=== PATIENT | female | born 1940 | race African-American/Black ===

== ENCOUNTER 2018-04-21 08:59 | Inpatient (IN) | payer OTHER ==
[2018-04-08 12:51] VITALS: BMI 23.5
[~2018-04-21 08:59] MED LIST: CEFAZOLIN 1 GM/D5W 1 GM/50 ML BAG IVPB ONE; VANCOMYCIN 1,000 MG in DEXTROSE 5%-WATER - 250 ML IVPB ONE
[2018-04-21] MEDS ORDERED: BUPIVACAINE LIPOSOME/PF (EXPAREL) 266 MG/20 ML VIAL ONE (13:29)
[2018-04-21] MEDS ORDERED: MIDAZOLAM HCL 2 MG/2 ML SINGLE DOSE VIAL ONE ×3 (13:29→17:03)
[2018-04-21] MEDS ORDERED: ONDANSETRON 4 MG/2 ML VIAL IVPUSH PRN ×2 (13:50→17:28)
[2018-04-21] MEDS ORDERED: oxyCODONE HCL 5 MG TABLET PO PRN ×3 (13:51→14:04)
[2018-04-21] MEDS ORDERED: LACTATED RINGERS SOLUTION 1,000 ML IV SCH ×2 (14:00→17:30)
[2018-04-21] MEDS ORDERED: PROPOFOL 20 ML ONE ×2 (14:18)
[2018-04-21] MEDS ORDERED: SUCCINYLCHOLINE CHLORIDE 200 MG/10 ML VIAL ONE (14:18)
[2018-04-21] MEDS ORDERED: DEXAMETHASONE SOD PHOSPHATE 4 MG/1 ML VIAL ONE (14:30)
[2018-04-21] MEDS ORDERED: ONDANSETRON 4 MG/2 ML VIAL ONE (14:30)
[2018-04-21] MEDS ORDERED: TRANEXAMIC ACID 1000 MG/10 ML VIAL ONE (14:30)
[2018-04-21] MEDS ORDERED: ceFAZolin SODIUM 1 GM VIAL ONE (14:30)
[2018-04-21] MEDS ORDERED: BENZOIN/ALOE VERA/STORAX/TOLU 58 ML BOTTLE ONE (17:04)
--- NOTE | 2018-04-21 17:25 | OP ---
Operative Note - Note: Operative Date: 04/21/18 Pre-Operative Diagnosis: Right knee osteoarthritis, degenerative joint disease Operation: Right total knee replacement, excision of synovial tumor Findings: as dictated Implants: as dictated Post-Operative Diagnosis: Same as Pre-op Surgeon: Renny Fox Paraeducator: Javed Jay Anesthesiologist/LADIES' HAT TRIMMER: Zak Villalta Anesthesia: Spinal, Local (Blocks: Saphenous, selective tibial) Specimens Removed: bone cuts, synovial tumor Estimated Blood Loss (mls): 75 (ml) Drains & Tubes with Location: Intra-articular hemovac. Tourniquet: 119min at 350mmHg Fluid Volume Replaced (mls): 1,300 (LR) Operative Report Dictated: Yes
[2018-04-21] MEDS ORDERED: MAG HYDROX/AL HYDROX/SIMETH 30 ML UNIT-DOSE CUP PO PRN (17:28)
[2018-04-21] MEDS ORDERED: MAGNESIUM HYDROX 2400MG/30ML ORAL SUSPENSION 30 ML CUP PO PRN (17:28)
[2018-04-21] MEDS ORDERED: ALBUTEROL SO4 8 GM HFA INHALER IH PRN (17:36)
[2018-04-21] MEDS ORDERED: PATIENT'S OWN MEDICATION (NON-FORMULARY) (Cetirizine Hcl 10 MG) PO PRN (17:36)
[2018-04-21] MEDS ORDERED: PATIENT'S OWN MEDICATION (NON-FORMULARY) (Esomeprazole Magnesium [Nexium 24hr] 40 MG) PO PRN (17:36)
[2018-04-21] MEDS ORDERED: LORATADINE 10 MG TABLET PO PRN (17:56)
[2018-04-21] MEDS ORDERED: ACETAMINOPHEN 325 MG TABLET (FP) ONE (18:04)
[2018-04-21] MEDS: ACETAMINOPHEN 325 MG TABLET (FP) PO SCH ×2 (18:21→18:30)
[2018-04-21] MEDS: oxyCODONE HCL 5 MG TABLET PO PRN (19:38)
[2018-04-21] MEDS: SENNOSIDES/DOCUSATE COMBO (SENNA PLUS) TABLET (UD) PO SCH (21:08)
[2018-04-21] MEDS: ASPIRIN COATED 81 MG TABLET.EC PO SCH (21:08)
[2018-04-21] MEDS: GABAPENTIN 300 MG CAPSULE (FP) PO SCH (21:08)
[2018-04-21] MEDS ORDERED: PATIENT'S OWN MEDICATION (NON-FORMULARY) (Lubiprostone [Amitiza] 24 MCG) PO SCH (22:00)
[2018-04-21] MEDS ORDERED: SENNOSIDES/DOCUSATE COMBO (SENNA PLUS) TABLET (UD) PO SCH (22:00)
[2018-04-21] MEDS: HYDROmorphone HCL 2 MG TABLET PO SCH (22:08)
[2018-04-21] MEDS: HYDROmorphone HCL CARPU-JECT 2 MG/1 ML DISP.SYRIN IVPB PRN (22:54)
[2018-04-21] MEDS: BUDESONIDE/FORMETEROL FUMARATE 80/4.5 mcg INHALER IH SCH (22:55)
[2018-04-21] MEDS: CEFAZOLIN 1 GM/D5W 1 GM/50 ML BAG IVPB SCH (22:55)
--- NOTE | 2018-04-21 23:09 | CONSULT ---
Consult Consult Specialty:: Hospital Medicine Referred by:: Dr. Fox Reason for Consultation:: Medical Management - History of Present Illness Chief Complaint: Right Knee Pain History of Present Illness: This is a 77 y/o woman with a past medical history of HTN, Asthma, COPD, Right Breast Ca (s/p Lumpectomy, RT 2012), CKD Stage 3, Anemia, DVT/PE, OA, DJD, Chronic Back Pain, GERD. Who had elective Right Total Knee Replacement, Excision of Synovial Tumor secondary to severe pain and difficulty ambulating. POD #0. Patient is AAOx3, reports having right knee pain, PS 6/10. Patient reports having numbness and tingling to her right foot. Patient reports tolerating PO fluids, voiding in bed medrano, no flatulence. Patient denies fever, chills, cough, SOB, dizziness, SANDS, CP, palpitations, AP, N/V,D. - History Source History Provided By: Patient Limitations to Obtaining History: No Limitations - Past Medical History Cardio/Vascular: Yes: CAD, Deep Vein Thrombosis, HTN, SC, Pulmonary Hypertension Pulmonary: Yes: Asthma, COPD, Pulmonary Embolus Gastrointestinal: Yes: GERD Renal/: Yes: Renal Failure Heme/Onc: Yes: Anemia, Cancer ([place]), Current Chemotherapy Psych: Yes: Anxiety, Depression Musculoskeletal: Yes: Chronic low back pain, Osteoarthritis - Past Surgical History Past Surgical History: Yes: Colonoscopy Additional Surgical History: Lumpectomy - Alcohol/Substance Use Hx Alcohol Use: No - Smoking History Smoking history: Never smoked Have you smoked in the past 12 months: No Home Medications - Allergies Allergies/Adverse Reactions: Allergies Allergy/AdvReac Type Severity Reaction Status Date / Time chocolate flavor Allergy Severe SNEEZING Verified 04/08/18 12:36 Penicillins Allergy Severe Rash Verified 04/08/18 12:36 shellfish derived Allergy Severe Swelling Verified 04/08/18 12:36 - Home Medications Home Medications: Ambulatory Orders Albuterol Sulfate Inhaler - [Ventolin Hfa Inhaler -] 1 - 2 inh PO Q4H PRN Esomeprazole Magnesium [Nexium 24Hr] 40 mg PO PRN PRN 01/25/18 Fluticasone/Salmeterol [Advair 250-50 Diskus] 1 each IH BID 01/25/18 Hydrocodone/Ibuprofen [Hydrocodone-Ibuprofen 5-200 mg] 1 tab PO PRN PRN Losartan/Hydrochlorothiazide [Losartan-Hctz 100-25 mg Tab] 1 tab PO DAILY Cetirizine HCl [Zyrtec -] 10 mg PO DAILY PRN 04/21/18 Ergocalciferol (Vitamin D2) [Vitamin D2] 50,000 unit PO WEEKLY 04/21/18 Lubiprostone [Amitiza] 24 mcg PO BID 04/21/18 Mirabegron [Myrbetriq] 50 mg PO DAILY 04/21/18 Family Disease History - Family Disease History Family Disease History: Heart Disease: Mother (CHF), CA: Mother, Sister (Breast , Ovarian) Review of Systems - Review of Systems Constitutional: reports: No Symptoms Eyes: reports: No Symptoms HENT: reports: No Symptoms Neck: reports: No Symptoms Cardiovascular: reports: No Symptoms Respiratory: reports: No Symptoms Gastrointestinal: reports: No Symptoms Genitourinary: reports: No Symptoms Breasts: reports: No Symptoms Reported Musculoskeletal: reports: Decreased ROM, Extremity Pain, Joint Pain, Joint Swelling Integumentary: reports: No Symptoms Neurological: reports: Numbness, Parasthesia Endocrine: reports: No Symptoms Hematology/Lymphatic: reports: No Symptoms Psychiatric: reports: No Symptoms Pain Intensity: 6 Physical Exam Vital Signs: Vital Signs Temperature 98.1 F 04/21/18 17:33 Pulse Rate 74 04/21/18 18:24 Respiratory Rate 18 04/21/18 18:24 Blood Pressure 140/64 04/21/18 18:24 O2 Sat by Pulse Oximetry (%) 100 04/21/18 18:22 Constitutional: Yes: Well Nourished, Anxious, Mild Distress Eyes: Yes: WNL, Conjunctiva Clear, EOM Intact, PERRL HENT: Yes: WNL, Atraumatic, Normocephalic Neck: Yes: WNL, Supple, Trachea Midline Cardiovascular: Yes: WNL, Regular Rate and Rhythm, S1, S2 Respiratory: Yes: WNL, Regular, CTA Bilaterally Gastrointestinal: Yes: Soft, Hypoactive Bowel Sounds ...Rectal Exam: Yes: Deferred Renal/: Yes: WNL Breast(s): Yes: WNL Musculoskeletal: Yes: Joint Swelling, Other ( right thigh/knee bandage- c/d/i, hemovac, icepack noted with SCDs, TN to palpation, LROM.) Edema: No Peripheral Pulses WNL: Yes Neurological: Yes: Cran Nerves II-XII Intact, Numbness, Paresthesia ...Motor Strength: LUE (5/5), LLE (5/5), RUE (5/5), RLE (3/5) Psychiatric: Yes: WNL, Alert, Oriented Problem List - Problems (1) Status post total right knee replacement Code(s): Z96.651 - PRESENCE OF RIGHT ARTIFICIAL KNEE JOINT (2) Anemia Code(s): D64.9 - ANEMIA, UNSPECIFIED (3) CKD (chronic kidney disease) stage 3, GFR 30-59 ml/min Code(s): N18.3 - CHRONIC KIDNEY DISEASE, STAGE 3 (MODERATE) (4) HTN (hypertension) Code(s): I10 - ESSENTIAL (PRIMARY) HYPERTENSION (5) COPD (chronic obstructive pulmonary disease) Code(s): J44.9 - CHRONIC OBSTRUCTIVE PULMONARY DISEASE, UNSPECIFIED (6) Asthma Code(s): J45.909 - UNSPECIFIED ASTHMA, UNCOMPLICATED (7) Depression Code(s): F32.9 - MAJOR DEPRESSIVE DISORDER, SINGLE EPISODE, UNSPECIFIED (8) Breast cancer, right Code(s): C50.911 - MALIGNANT NEOPLASM OF UNSP SITE OF RIGHT FEMALE BREAST (9) DJD (degenerative joint disease), cervical Code(s): M47.812 - SPONDYLOSIS W/O MYELOPATHY OR RADICULOPATHY, CERVICAL REGION (10) Osteoarthritis Code(s): M19.90 - UNSPECIFIED OSTEOARTHRITIS, UNSPECIFIED SITE (11) Back pain Code(s): M54.9 - DORSALGIA, UNSPECIFIED Assessment/Plan This is a 77 y/o woman with a PMHx of: HTN, R- Breast Ca s/p Lumpectomy, RT ( 2012), Asthma, COPD, CKD Stage 3, OA, DJD. s/p Right Total Knee Replacement, Excision of Synovial Tumor. POD #0 Plan: Continue current ortho regimen PT Incentive Spirometry Continue home meds Monitor CBC, BMP Continue AC, per Ortho Visit type - Emergency Visit Emergency Visit: No - New Patient This patient is new to me today: Yes Date on this admission: 04/21/18 - Critical Care Critical Care patient: No
[2018-04-22] MEDS: ACETAMINOPHEN 325 MG TABLET (FP) PO SCH ×5 (01:44→20:13)
[2018-04-22] MEDS: oxyCODONE HCL 5 MG TABLET PO PRN ×2 (01:45→18:24)
[2018-04-22] MEDS: HYDROmorphone HCL CARPU-JECT 2 MG/1 ML DISP.SYRIN IVPB PRN (05:33)
[2018-04-22] MEDS: CEFAZOLIN 1 GM/D5W 1 GM/50 ML BAG IVPB SCH (06:07)
--- NOTE | 2018-04-22 06:32 | OP ---
DATE OF OPERATION: 04/21/2018 SURGEON: Renny Fox M.D. TECHNICIAN AUTOMATIC: Shawn Kennedy. PREOPERATIVE DIAGNOSIS: Tricompartment osteoarthritis, right knee. POSTOPERATIVE DIAGNOSIS: 1. Tricompartment osteoarthritis, right knee. 2. 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 OPERATION PERFORMED: 1. Right posterior stabilized total knee arthroplasty (Laurier Triathlon cemented implant). 2. Wide resection of hemangioma. ANESTHESIA: Conscious sedation with spinal anesthesia and peripheral block. ANTIBIOTICS GIVEN: 2 g Kefzol. TOURNIQUET: Applied. TOURNIQUET TIME: Approximately 90 minutes. DESCRIPTION OF PROCEDURE: Patient was correctly identified, brought in operating room. Right lower extremity was prepped, pre-draped in the routine manner with Betadine scrub solution, wiped with alcohol, DuraPrep applied. Midline incision is utilized. We were indicating a subvastus approach here, but the vasculature at the corner of the vastus medialis was readily seen, and I elected to hold off on this, as this is directly in the path of the subvastus incision approach and instead opted for a standard approach. The quadriceps tendon was split longitudinally, and the medial parapatellar margin with the cuff of about a centimeter down to the medial aspect of the tibia. The knee was flexed which enabled easy access to the knee, which revealed a deficient femoral condyle on the lateral side, and severe tricompartment osteoarthritis with tram tracks noted in the femoral condyles and tibial plateaus. To start, the entire hemangioma was resected. Wide resection was performed and sent to the lab for appropriate histopathology. The operation commenced to the knee replacement. The patella was capsized laterally. Free handedly the patella was cut from patella ligament and quadriceps tendon. Once this had been performed, the Rashmi was placed behind the tibia, leaving the tibia forward levering on the intracondylar notch, giving easy access to the proximal tibia. The appropriate jig system which was an extramedullary jig system applied, and the appropriate amount of bone taken off to receive a size 6 universal base plate (Charo). Once the appropriate jig system placed on the tibia, it was adequate enough to receive the appropriate trial components for a size 6. The patella was then dealt with by patella resection from filling the quadriceps tendon and utilized an appropriate 27-mm patellar button. The [facility] through the actual jig. The femur was then attended to. This ultimately measured size 6, and the appropriate jig system applied, this was cut to 3 degrees of external rotation, 4-1/2 degrees of valgus, and the jigs were aligned on the basis of the proximal tibial cut because of the markedly deficient femoral condyle. The bone bed was dealt with with the routine cuts and the very sclerotic bone was dealt with with multiple small drill holes into the bone for cementation purposes. Once all jig cuts had been made, extension gaps were measured at 9 mm and were even. The limb aligned was perfect in the coronal as well as sagittal plane. Cementing was then commenced. All 3 components cemented at once, and extraneous cement removed prior to the cement had cured, and debridement of the soft tissues performed appropriately. The wounds were thoroughly lavaged. The tracking of the patella was normal with a trial size 9 and the stability in the coronal sagittal plane were well maintained accordingly. The knee alignment in the coronal sagittal plane was well maintained. Range of movement was 0 to 120 degrees, ligaments within the coronal and sagittal plane were normal, both at 90 degrees and the flexion-extension was stable both in the coronal and sagittal plane. The foot alignment in the axial rotational plane was normal. Once all extraneous cement had been removed, tissues were thoroughly lavaged, closure was as follows. Fascia and quadriceps tendon 1 Vicryl interrupted sutures, subcutaneous 1 and 2-0 Vicryl, skin 3-0 Monocryl with Steri-Strips. Drainage 1/8 inch Hemovac x1. Overall comment: Difficult knee replacement because of deficient femoral condyle and resection of the tumor. We await histopathology confirmation. My clinical sense is, this is a synovial hemangioma. Patient to be nursed on the floor. MD MICH Cadena/[id number] MTDGodwin
--- NOTE | 2018-04-22 08:08 | PN ---
Progress Note (short form) - Note Progress Note: POD #1 Alert. Sitting in chair at bedside. C/o incisional pain. Adequate pain control with medications ordered. Denies n/v/f/c, CP, palpitations or SOB. Last Vital Signs Temp Pulse Resp BP Pulse Ox 97.6 F 63 18 110/71 98 12//18 09:43 12//18 09:43 04/22/18 09:43 04/22/18 09:43 04/22/18 09:43 CBC, BMP 04/22/ 07:29 04/22/18 07:29 Gen: nad LE: RLE dressing c/d/i. hemovac 120 mL. calf soft/supple/nt bilat. leg in extension. Problem List - Problems (1) Right knee DJD Assessment/Plan: POD #1 s/p Right TKR -Pain control. -DVT PPx: -Chemical: ASA 81 mg po BID x 6 weeks -Mechanical: CHEY's, SCD's -Incentive Spirometry. -PT/OT/Rehab, OOB. -WBAT RLE -Will dc drain AM -f/u am labs. -Care per medical hospitalist team. -Discharge planning: f/u [facility] [place] office recreation superintendent for appointment: Code(s): M17.12 - UNILATERAL PRIMARY OSTEOARTHRITIS, RIGHT KNEE
[2018-04-22 08:15] LABS: HEMOGLOBIN 9.5 GM/dl (10.7-15.3); MCH 26.6 pg (25.7-33.7); MCHC 30.6 g/dl (32.0-36.0); MEAN CELL VOLUME 86.9 fl (80-96); MEAN PLT VOLUME 8.8 fl (7.5-11.1); PLATELET COUNT 188 K/MM3 (134-434); RBC 3.56 M/mm3 (3.60-5.2); RDW 13.1 % (11.6-15.6); WHITE BLOOD COUNT 6.8 K/mm3 (4.0-10.8)
[2018-04-22 08:28] LABS: ANION GAP 7 MMOL/L (8-16); BLOOD UREA NITROGEN 12 mg/dl (7-18); CALCIUM 8.8 mg/dl (8.4-10.2); CHLORIDE 100 mmol/L (98-107); CO2 25 mmol/L (22-28); CREATININE 0.8 mg/dl (0.6-1.3); GLUCOSE,RANDOM 125 mg/dl (74-106); POTASSIUM 3.6 mmol/L (3.5-5.1); SODIUM 132 mmol/L (136-145)
--- NOTE | 2018-04-22 08:38 | PN ---
Physical Exam: SUBJECTIVE: Patient seen and examined at bedside. Back from physical therapy. Pain was an issue overnight and patient received IV dilaudid. Subsequent concern for oversedation. This morning patient is awake, alert, conversational. No signs of oversedation. OBJECTIVE: Vital Signs Period Temp Pulse Resp BP Sys/Spangler Pulse Ox Last 24 Hr 97.7 F-98.9 F 61-76 18-19 117-169/56-82 95-100 GENERAL: The patient is awake, alert, and fully oriented, in no acute distress. LUNGS: Breath sounds equal, clear to auscultation bilaterally, no wheezes, no crackles, no accessory muscle use. HEART: Regular rate and rhythm, S1, S2 . ABDOMEN: Soft, nontender, nondistended EXTREMITIES: RIGHT LOWER: Surgical wrap c/d/i; SCDs, TEDs, ice pack; +flexion/ extension toes NEUROLOGICAL: Cranial nerves II through XII grossly intact. Normal speech, steady gait PSYCH: Normal mood, normal affect. SKIN: Warm, dry, normal turgor, no rashes or lesions noted Active Medications Generic Name Dose Route Start Last Admin Trade Name Freq PRN Reason Stop Dose Admin Acetaminophen 650 mg 04/21/18 14:00 04/22/18 08:24 Tylenol - PO 04/24/18 13:59 650 mg Q6H ARIEL Administration Al Hydroxide/Mg Hydroxide 30 ml 04/21/18 17:28 Mylanta Oral Suspension - PO Q4H PRN DYSPEPSIA Albuterol Sulfate 1 puff 04/21/18 17:36 Ventolin Hfa Inhaler - IH Q4H PRN ASTHMA Aspirin 81 mg 04/21/18 22:00 04/21/18 21:08 Ecotrin - PO 81 mg BID ARIEL Administration Budesonide/Formoterol Fumarate 2 puff 04/21/18 22:00 04/21/18 22:55 Symbicort 80/4.5mcg - IH 2 puff BID ARIEL Administration Ergocalciferol 50,000 unit 04/23/18 10:00 Drisdol - PO Fr@1000 ARIEL Fentanyl 50 mcg 04/21/18 17:55 04/21/18 18:10 Sublimaze Injection - IVPUSH 50 mcg Q5M PRN Administration PAIN-PACU ORDER X 4 DOSES ONLY Gabapentin 300 mg 04/21/18 22:00 04/21/18 21:08 Neurontin - PO 04/24/18 21:59 300 mg BID ARIEL Administration HCTZ/Losartan Potassium 2 tab 04/22/18 10:00 Hyzaar - PO DAILY ARIEL Hydromorphone HCl 2 mg 04/21/18 22:00 04/21/18 22:08 Dilaudid - PO 04/22/18 10:01 2 mg BID ARIEL Administration Hydromorphone HCl 2 mg 04/21/18 22:43 04/22/18 05:33 Dilaudid Injection - IVPB 2 mg Q6H PRN Administration PAIN LEVEL 7 - 10 Lactated Ringer's 1,000 mls @ 125 mls/hr 04/21/18 14:00 04/22/18 07:11 Lactated Ringers Solution IV Not Given ASDIR ARIEL Loratadine 10 mg 04/21/18 17:56 Claritin - PO DAILY PRN ALLERGY Magnesium Hydroxide 30 ml 04/21/18 17:28 Milk Of Magnesia - PO PRN PRN CONSTIPATION Multivitamins/Minerals/Vitamin C 1 tab 04/22/18 10:00 Tab-A-Vit - PO DAILY [facility] Non-Formulary Medication 24 mcg 04/21/18 22:00 Lubiprostone [Amitiza] PO BID [facility] Non-Formulary Medication 50 mg 04/22/18 10:00 Mirabegron [Myrbetriq] PO DAILY [facility] Ondansetron HCl 4 mg 04/21/18 17:28 Zofran Injection IVPUSH Q6H PRN NAUSEA Oxycodone HCl 5 mg 04/21/18 14:04 Roxicodone - PO Q3H PRN PAIN LEVEL 1 - 3 Oxycodone HCl 10 mg 04/21/18 14:05 04/22/18 01:45 Roxicodone - PO 10 mg Q3H PRN Administration PAIN LEVEL 4 - 6 Senna/Docusate Sodium 1 tablet 04/21/18 22:00 04/21/18 21:08 Pericolace - PO 1 tablet BID ARIEL Administration ASSESSMENT/PLAN 77 year-old female with a PMH significant for HTN, CKD, breast cancer s/p right lumpectomy (2012) asthma, bronchiectasis, GERD, depression/anxiety, and right knee OA s/p right TKR and excision of synovial tumor on 04/21/[address] Renny Fox. s/p Right TKR and excision of synovial tumor 04/21/18 --POD #1 --pain was issue overnight and patient became overly sedated following IV dilaudid; d/c'd fentanyl and dilaudid; manage pain with PO meds --perioperative antibiotics complete --Hemovac with 120cc's output --bowel regimen --incentive spirometry --ASA 81mg BID Hypertension --BP stable --continue HCTZ/Losartan CKD --renal function stable Breast cancer s/p right lumpectomy --has been on endocrine therapy x 5 years --stable Asthma Bronchiectasis --continue Symbicort and albuterol inhalers GERD --Mylanta PRN Depression/Anxiety --not on medication FEN Fluids: PO intake adequate Electrolytes: replete as indicated Nutrition: low sodium DVT prophylaxis: ASA, SCDs, TEDs, oob, ambulation Physical therapy Dispo: continues to require inpatient care. Full code. Visit type - Emergency Visit Emergency Visit: Yes ED Registration Date: 04/21/18 Care time: The patient presented to the Emergency Department on the above date and was hospitalized for further evaluation of their emergent condition. - New Patient This patient is new to me today: Yes Date on this admission: 04/22/18 - Critical Care Critical Care patient: No
[2018-04-22] MEDS: SENNOSIDES/DOCUSATE COMBO (SENNA PLUS) TABLET (UD) PO SCH ×2 (09:54→22:07)
[2018-04-22] MEDS: ASPIRIN COATED 81 MG TABLET.EC PO SCH ×2 (09:54→22:07)
[2018-04-22] MEDS: MULTIVITAMINS (DAILY MVI) TABLET (FP) PO SCH (09:54)
[2018-04-22] MEDS: GABAPENTIN 300 MG CAPSULE (FP) PO SCH ×2 (09:55→22:07)
[2018-04-22] MEDS: LOSARTAN 50MG/HCTZ 12.5MG 1 TAB (FP) PO SCH (09:55)
[2018-04-22] MEDS ORDERED: PT OWN MED DRAWER 7, Y5N ONE ×2 (09:57→21:56)
[2018-04-22] MEDS: BUDESONIDE/FORMETEROL FUMARATE 80/4.5 mcg INHALER IH SCH ×2 (09:58→22:07)
[2018-04-22] MEDS ORDERED: PATIENT'S OWN MEDICATION (NON-FORMULARY) (Losartan/Hydrochlorothiazide [Losartan-Hctz 100- PO SCH ×2 (10:00)
[2018-04-22] MEDS ORDERED: PATIENT'S OWN MEDICATION (NON-FORMULARY) (Mirabegron [Myrbetriq] 50 MG) PO SCH (10:00)
[2018-04-22] MEDS ORDERED: PANTOPRAZOLE 40 MG TABLET (FP) PO SCH (10:00)
[2018-04-22] MEDS: HYDROmorphone HCL 2 MG TABLET PO SCH (10:07)
--- NOTE | 2018-04-22 10:52 | PN ---
Progress Note (short form) - Note Progress Note: Anesthesia post op note, POD#1 S/P right knee arthroplasty, under spinal and peripheral nerve blocks. Pat seen and examined. VSS. Started PT. Pain controlled , although c/o nausea after taking pain medication. No apparent anesthesia related complications. Signed off.
[2018-04-23] MEDS: ACETAMINOPHEN 325 MG TABLET (FP) PO SCH ×3 (01:18→14:49)
[2018-04-23] MEDS: oxyCODONE HCL 5 MG TABLET PO PRN ×4 (01:19→14:55)
[2018-04-23 08:28] LABS: HEMATOCRIT 29.8 % (32.4-45.2); HEMOGLOBIN 9.3 GM/dl (10.7-15.3); MCH 27.4 pg (25.7-33.7); MCHC 31.2 g/dl (32.0-36.0); MEAN CELL VOLUME 87.6 fl (80-96); MEAN PLT VOLUME 8.8 fl (7.5-11.1); PLATELET COUNT 178 K/MM3 (134-434); RDW 13.1 % (11.6-15.6); WHITE BLOOD COUNT 6.7 K/mm3 (4.0-10.8)
[2018-04-23] MEDS ORDERED: PT OWN MED DRAWER 7, Y5N ONE ×2 (09:16→14:51)
[2018-04-23] MEDS ORDERED: ERGOCALCIFEROL (VITAMIN D2) 50,000 UNIT CAPSULE (FP) PO SCH (10:00)
[2018-04-23] MEDS: LOSARTAN 50MG/HCTZ 12.5MG 1 TAB (FP) PO SCH (10:32)
[2018-04-23] MEDS: SENNOSIDES/DOCUSATE COMBO (SENNA PLUS) TABLET (UD) PO SCH (10:32)
[2018-04-23] MEDS: ASPIRIN COATED 81 MG TABLET.EC PO SCH (10:32)
[2018-04-23] MEDS: MULTIVITAMINS (DAILY MVI) TABLET (FP) PO SCH (10:32)
[2018-04-23] MEDS: BUDESONIDE/FORMETEROL FUMARATE 80/4.5 mcg INHALER IH SCH (10:32)
[2018-04-23] MEDS: GABAPENTIN 300 MG CAPSULE (FP) PO SCH (10:32)
--- NOTE | 2018-04-23 11:57 | SURG ---
Surgery Welding Inspector Note Welding Inspector: Javed Jay PA-C (Suzy) Date of Service: 04/21/18 Diagnosis: Right knee osteoarthritis, degenerative joint disease Procedure: Right total knee replacement, excision of synovial tumor I was present for the entirety of the operative procedure. For further detail, please refer to operative report. Visit type - Case Type Case Type: Scheduled - Emergency Emergency Visit: No - New patient This patient is new to me today: Yes Date on this admission: 04/23/18 - Critical Care Critical Care patient: No
--- NOTE | 2018-04-23 13:44 | DS ---
Physical Exam: SUBJECTIVE: Patient seen and examined OBJECTIVE: Vital Signs Temperature 98.4 F 04/23/18 09:34 Pulse Rate 97 H 04/23/18 09:34 Respiratory Rate 18 04/23/18 09:34 Blood Pressure 172/48 H 04/23/18 09:34 O2 Sat by Pulse Oximetry (%) 98 04/23/18 09:00 PHYSICAL EXAM GENERAL: The patient is awake, alert, and fully oriented, in no acute distress. HEAD: Normal with no signs of trauma. EYES: PERRL, extraocular movements intact, sclera anicteric, conjunctiva clear. ENT: Ears normal, nares patent, oropharynx clear without exudates, moist mucous membranes. NECK: Trachea midline, full range of motion, supple. LUNGS: breathing comfortably, no accessory muscle use. HEART: Regular rate and rhythm, EXTREMITIES: 2+ pulses, warm, well-perfused, no edema. RLE shows, mild tenderness over knee, no weakness or numbness, incision is clean with no erythema or discharge. Drain in place with serosanguinous drain, removed at bedside. NEUROLOGICAL: Cranial nerves II through XII grossly intact. Normal speech, gait not observed. PSYCH: Normal mood, normal affect. SKIN: Warm, dry, normal turgor, no rashes or lesions noted. LABS CBC,CMP WBC 6.7 K/mm3 (4.0-10.8) 04/23/18 07:11 RBC 3.40 M/mm3 (3.60-5.2) L 04/23/18 07:11 Hgb 9.3 GM/dl (10.7-15.3) L 04/23/18 07:11 Hct 29.8 % (32.4-45.2) L 04/23/18 07:11 MCV 87.6 fl (80-96) 04/23/18 07:11 MCH 27.4 pg (25.7-33.7) 04/23/18 07:11 MCHC 31.2 g/dl (32.0-36.0) L 04/23/18 07:11 RDW 13.1 % (11.6-15.6) 04/23/18 07:11 Plt Count 178 K/MM3 (134-434) 04/23/18 07:11 MPV 8.8 fl (7.5-11.1) 04/23/18 07:11 Sodium 132 mmol/L (136-145) L 04/22/18 07:29 Potassium 3.6 mmol/L (3.5-5.1) 04/22/18 07:29 Chloride 100 mmol/L (98-107) 04/22/18 07:29 Carbon Dioxide 25 mmol/L (22-28) 04/22/18 07:29 Anion Gap 7 MMOL/L (8-16) L 04/22/18 07:29 BUN 12 mg/dl (7-18) 04/22/18 07:29 Creatinine 0.8 mg/dl (0.6-1.3) 04/22/18 07:29 Creat Clearance w eGFR > 60 (>60) 04/22/18 07:29 Random Glucose 125 mg/dl (74-106) H 04/22/18 07:29 Calcium 8.8 mg/dl (8.4-10.2) 04/22/18 07:29 HOSPITAL COURSE: The patient was admitted to the Med-Surg Unit after an elective repair of their Right knee osteoarthritis Now, s/p Right total knee replacement. An xray was obtained in the OR and confirmed hardware placementin good position with no fractures or dislocations. The day of surgery, the patient ambulated the hallways with assistance. Narcotic and non-narcotic pain management control was achieved with an oral and IV approach. POD #2, the surgical drain was removed fully intact and without incident. Belkys-operative IV ABX were administered. DVT prophylaxis was achieved with SCDs and early ambulation. The patient ambulated with Physical Therapy and acute rehab was recommended upon discharge. Transfer to an rehab center was set up by social work. The discharge instructions and an oral pain management plan were reviewed with the patient. All questions answered. Above plan discussed with Dr. Fox and agreed. Date of Admission:04/21/18 Date of Discharge: 04/23/18 Minutes to complete discharge: 20 Visit type - Case Type Case Type: Scheduled - Emergency Emergency Visit: No - New patient This patient is new to me today: Yes Date on this admission: 04/23/18
[2018-04-23 13:59] VITALS: BP 110/47; PULSE 93; TEMP 98.3
--- NOTE | 2018-04-26 15:33 | PATH ---
Surgical Pathology Report Patient Name: MOIRA SERRANO Med. Rec. #: [id number] /Age/Gender: 1940 (Age: 77) / F Account: [id number] Location: [facility] MED-SURG Taken: 04/21/2018 Received: 04/21/2018 Reported: 04/26/2018 Physicians: Renny Fox M.D. Specimen(s) Received A: RIGHT KNEE BONES B: SYNOVIAL TUMOR OF RIGHT MEDIAL KNEE Clinical History Right knee osteoarthritis Final Diagnosis A. BONES, RIGHT KNEE, TOTAL KNEE REPLACEMENT: DEGENERATIVE JOINT DISEASE. B. SYNOVIAL TUMOR, RIGHT MEDIAL KNEE, EXCISION: FIBROADIPOSE TISSUE SHOWING HEMORRHAGE, FEW FOCI OF FAT NECROSIS AND DENSE FIBROSIS. Electronically Signed Crystal Gomez M.D. Gross Description A. Received in formalin labeled "right knee bone," is a 13.0 x 10.0 x 2.0 cm aggregate of multiple portions of bone and soft tissue. The tibial plateau measures 8.5 x 5.4 x 1.6 cm. There is a 3 cm in greatest dimension area of eburnation identified. The articular surfaces are mcgee-yellow and focally granular. The underlying trabecular bone is yellow and hard. [employer] sections are submitted in one cassette, following decalcification. B. Received in formalin labeled "synovial tumor of right medial knee," is a 1.8 x 1.0 x 0.4 cm mcgee-brown, irregular portion of soft tissue. The specimen is trisected and entirely submitted in one cassette. 04/23/201804/23/2018
== END 2018-04-23 15:52 | DRG 470 ==
LOC: FM/S 08:59
PROVIDERS: ADMIT Orthopaedic Surgery Orthopaedic Surgery of the Spine; ATTEND Orthopaedic Surgery Orthopaedic Surgery of the Spine
PROC: 0SCC0ZZ Extirpation of Matter from Right Knee Joint, Open Approach (ICD-10-PCS; 2018-04-21)
PROC: 0SRC0J9 Replacement of Right Knee Joint with Synthetic Substitute, Cemented, Open Approach (ICD-10-PCS; principal; 2018-04-21 15:09)
DX: M17.11 Unilateral primary osteoarthritis, right knee (principal); D18.09 Hemangioma of other sites; D49.89 Neoplasm of unspecified behavior of other specified sites; C50.911 Malignant neoplasm of unspecified site of right female breast; J44.9 Chronic obstructive pulmonary disease, unspecified; I12.9 Hypertensive chronic kidney disease with stage 1 through stage 4 chronic kidney disease, or unspecified chronic kidney disease; N18.3 Chronic kidney disease, stage 3 (moderate); Z86.718 Personal history of other venous thrombosis and embolism; Z86.711 Personal history of pulmonary embolism; G89.29 Other chronic pain; M54.5 Low back pain; I25.2 Old myocardial infarction; I27.20 Pulmonary hypertension, unspecified; K21.9 Gastro-esophageal reflux disease without esophagitis; F32.9 Major depressive disorder, single episode, unspecified; F41.9 Anxiety disorder, unspecified
CPT/HCPCS: 36415; 73560-TC-RT-FY; 80048; 85027; 88304-TC; 88311-TC; 94760; 97116-GP; 97162-GP